=== PATIENT | male | born 1990 | race Caucasian/White ===

== ENCOUNTER 2018-03-17 23:02 | Emergency (ER) | payer OTHER ==
[2018-03-17] MEDS ORDERED: NS 0.9% 1000 ML* 2,000 ML IV ONE (23:28)
[2018-03-17] MEDS ORDERED: Acetaminophen TAB* 325 MG PO ONE (23:29)
[2018-03-17] MEDS ORDERED: Ketorolac INJ* 30 MG/ML 1 ML VIAL IV PUSH ONE (23:30)
[2018-03-17] MEDS ORDERED: Dexamethasone IV* 4 MG/ML 1 ML (4 MG) IV SLOW PU ONE (23:30)
--- NOTE | 2018-03-18 00:19 | ED ---
Throat Pain/Nasal Congestion - HPI Summary HPI Summary: A 28 y/o male presents to ED c/o lump on throat. In the ED room, the patient has a pulse of 89 BPM, O2 saturation of 100% and blood pressure of 129/74. As per triage, "Patient to ED with "lump in throat" that started Thursday, pt also stated he's been vomiting as well since Thursday". According to the patient, he has been experiencing the lump on his throat since Thursday. He denies any vomiting, but stated he cannot swallow. He also has a fever of 102-103. No medications. - History of Current Complaint Chief Complaint: EDThroatPain Time Seen by Provider: 03/17/18 23:20 Hx Obtained From: Patient Onset/Duration: Sudden Onset, Lasting Days, Still Present - Allergies/Home Medications Allergies/Adverse Reactions: Allergies Allergy/AdvReac Type Severity Reaction Status Date / Time No Known Allergies Allergy Verified 03/17/18 16:52 PMH/Surg Hx/FS Hx/Imm Hx Endocrine/Hematology History: Denies: Hx Diabetes Cardiovascular History: Denies: Hx Congestive Heart Failure, Hx Hypertension, Hx Pacemaker/ICD, Other Cardiovascular Problems/Disorders Respiratory History: Denies: Hx Asthma, Hx Chronic Obstructive Pulmonary Disease (COPD), Other Respiratory Problems/Disorders - Surgical History Surgery Procedure, Year, and Place: NO PRIOR SURGERIES NOTED Infectious Disease History: No Infectious Disease History: Denies: Traveled Outside the [place] in Last 30 Days - Family History Known Family History: Positive: Other - BREAST AND THYROID CANCER - Social History Alcohol Use: Occasionally Substance Use Type: Reports: Marijuana Substance Use Comment - Amount & Last Used: weekly Smoking Status (MU): Never Smoked Tobacco Review of Systems Positive: Fever Positive: Other - POSITIVE: Lump on throat Negative: Vomiting All Other Systems Reviewed And Are Negative: Yes Physical Exam - Summary Physical Exam Summary: VITAL SIGNS: Reviewed. GENERAL: Patient is a well-developed and nourished male who is lying comfortable in the stretcher. Patient is not in any acute respiratory distress. HEAD AND FACE: No signs of trauma. No ecchymosis, hematomas or skull depressions. No sinus tenderness. EYES: PERRLA, EOMI x 2, No injected conjunctiva, no nystagmus. EARS: Hearing grossly intact. Ear canals and tympanic membranes are within normal limits. MOUTH: Oropharynx within normal limits. Bilateral tonsillectomy swelling and erythema with mild oxidate. Upper cervical adenopathy bilaterally. NECK: Supple, trachea is midline, no adenopathy, no JVD, no carotid bruit, no c- spine tenderness, neck with full ROM. CHEST: Symmetric, no tenderness at palpation LUNGS: Clear to auscultation bilaterally. No wheezing or crackles. CVS: Regular rate and rhythm, S1 and S2 present, no murmurs or gallops appreciated. ABDOMEN: Soft, non-tender. No signs of distention. No rebound no guarding, and no masses palpated. Bowel sounds are normal. EXTREMITIES: FROM in all major joints, no edema, no cyanosis or clubbing. NEURO: Alert and oriented x 3. No acute neurological deficits. Speech is normal and follows commands. SKIN: Dry and warm Triage Information Reviewed: Yes Vital Signs On Initial Exam: Initial Vitals Temp Pulse Resp BP Pulse Ox 98.9 F 84 16 129/74 99 03/17/18 23:17 03/17/18 23:17 03/17/18 23:17 03/17/18 23:17 03/17/18 23:17 Vital Signs Reviewed: Yes Diagnostics - Vital Signs Vital Signs Temp Pulse Resp BP Pulse Ox 03/17/18 23:51 100 03/17/18 23:17 98.9 F 84 16 129/74 99 - Laboratory Lab Results: Lab Results 03/17/18 03/17/18 03/17/18 Range/Units 23:36 23:58 23:59 Monoscreen Negative (Negative) Influenza A (Rapid) Negative (Negative) Influenza B (Rapid) Negative (Negative) Group A Strep Rapid Positive A (Negative) Lab Statement: Any lab studies that have been ordered have been reviewed, and results considered in the medical decision making process. EENT Course/Dx - Course Course Of Treatment: A 28 y/o male presents to ED c/o lump on throat. In the ED room, the patient has a pulse of 89 BPM, O2 saturation of 100% and blood pressure of 129/74. No laboratory scans were done. In the ED course, the patient recieved Tylenol, Decadron, Toradol and IV fluids. Patient will be discharged with a diagnosis of strep throat. Patient is to follow up with PCP in 1-2 days. Patient is argeeable with this plan. - Diagnoses Provider Diagnoses: Strep throat Discharge - Sign-Out/Discharge Documenting (check all that apply): Patient Departure - DISCHARGE - Discharge Plan Condition: Stable Disposition: HOME Prescriptions: Amoxicillin PO (*) [Amoxicillin 875 MG (*)] 875 mg PO BID #20 tab Ibuprofen TAB* [Motrin TAB* 800 MG] 800 mg PO Q6H PRN #30 tab PRN Reason: Fever/Pain predniSONE TAB* [Deltasone 20 MG TAB*] 40 mg PO DAILY #6 tab Patient Education Materials: Strep Throat (ED) Referrals: [facility] [Outside] - 2 Days Additional Instructions: FOLLOW UP WITH PRIMARY CARE IN 1-2 DAYS. RETURN TO ED FOR ANY NEW OR WORSENING SYMPTOMS. - Attestation Statements Document Initiated by Scribe: Yes Documenting Scribe: Se Cutler Provider For Whom Scribe is Documenting (Include Credential): Aleyda Mckeon MD Scribe Attestation: Se Burks, scribed for Aleyda Mckeon MD on 03/18/18 at 0158.
[2018-03-18 02:15] VITALS: BP 125/82
== END 2018-03-18 02:17 | disposition home or self-care (01) ==
LOC: ED 23:02
DX: J02.0 Streptococcal pharyngitis (principal); R50.9 Fever, unspecified
CPT/HCPCS: 36415; 86308; 87040; 87651; 96374; 96375; 99283; A9270-GY; J1100; J1885

== ENCOUNTER → 2018-03-17 | Emergency (ER) | payer OTHER ==
[2018-03-17 17:49] LABS: Hematocrit 44 % (42-52); Hemoglobin 14.9 g/dl (14.0-18.0); Mean Corpuscular HGB Conc 34 g/dl (31-36); Mean Corpuscular Hemoglobin 32 pg (27-31); Mean Corpuscular Volume 94 fL (80-94); Mean Platelet Volume 8.1 um3 (7.4-10.4); Platelet Count 193 10^3/ul (150-450); Red Blood Count 4.71 10^6/ul (4.00-5.40); Red Cell Distribution Width 13 % (10.5-15); White Blood Count 14.7 10^3/ul (3.5-10.8)
[2018-03-17 17:55] LABS: EGFR Non-African American 68.3 (>60)
[2018-03-17 18:24] LABS: ABS Basophils 0 10^3/ul (0-0.2); ABS Eosinophils 0.4 10^3/ul (0-0.6); ABS Lymphocytes 1.3 10^3/ul (1.0-4.8); ABS Monocytes 1.6 10^3/ul (0-0.8); ABS Neutrophils 11.4 10^3/ul (1.5-7.7); ABS Nucleated RBC 0 10^3/ul; Eosinophil % 2.8 % (0-6); Lymphocyte % 8.9 % (25-47); Nucleated Red Blood Cells % 0
--- NOTE | 2018-03-17 18:40 | RAD ---
INDICATION: Chest pain COMPARISON: Chest x-ray dated December 24, 2012 TECHNIQUE: Single AP view of the chest was obtained. FINDINGS: The heart and mediastinum exhibit normal size and contour. The lungs are grossly clear. There is no evidence of a large pleural effusion. Visualized bones are normal for the patient's age. IMPRESSION: No radiographic evidence for acute cardiopulmonary abnormality on this single AP view chest x-ray.
[2018-03-17 18:51] VITALS: BP 127/66
== END | disposition home or self-care (01) ==
LOC: ED 16:45
DX: R07.9 Chest pain, unspecified (principal); J02.9 Acute pharyngitis, unspecified; Z53.21 Procedure and treatment not carried out due to patient leaving prior to being seen by health care provider
CPT/HCPCS: 36415; 71045; 80053; 83605; 84484; 85025; 93005; 99282